=== PATIENT | female | born 1960 | race African-American/Black ===

== ENCOUNTER 2019-11-22 06:53 | Outpatient (CLI) | payer OTHER, SELFPAY ==
--- NOTE | ~2019-11-22 | XR_ITS ---
EXAMINATION: XR shoulder RT min 2V INDICATION: Right shoulder pain TECHNIQUE: Four views of the right shoulder are submitted. COMPARISON: None FINDINGS: Normal alignment. No fracture. There is mild osteoarthritis of the acromioclavicular joint. The glenohumeral joint is unremarkable. Soft tissues are unremarkable. IMPRESSION: Mild osteoarthritis. Reviewed, dictated and finalized at location A. IMPRESSION: Mild osteoarthritis.
--- NOTE | ~2019-11-22 | XR_ITS ---
EXAMINATION:XR_[id number] DATE: 11/22/2019 07:20 INDICATION: Cervical radiculopathy TECHNIQUE: AP, lateral, lateral swimmers and odontoid views of the cervical spine are provided. COMPARISON: None FINDINGS: There are 2 mm of anterolisthesis of C4 on C5. The odontoid is intact. No fracture is ident ified. Vertebral body heights and disk spaces are normal. Prevertebral soft tissues are normal. Small degenerative osteophytes project from the anterior endplates of multiple vertebral bodies. There is advanced facet osteoarthritis from C2-3 through C4-5. Mild to moderate uncovertebral joint osteoarthr itis is also noted at these levels. IMPRESSION: 1. Moderate spondylosis of the upper and mid cervical spine. No acute findings. Reviewed, dictated and finalized at location A.
== END 2019-11-22 06:54 | disposition home or self-care (01) ==
DX: M25.511 Pain in right shoulder (principal); G89.29 Other chronic pain; M19.011 Primary osteoarthritis, right shoulder; M47.22 Other spondylosis with radiculopathy, cervical region
CPT/HCPCS: 72040; 73030

== ENCOUNTER → 2021-07-15 13:13 | Outpatient (CLI) | payer OTHER, SELFPAY ==
--- NOTE | ~2021-07-15 | US_ITS ---
EXAMINATION: US soft tissue head and neck DATE: 07/15/2021 13:48 INDICATION: Right neck lump. TECHNIQUE: Multiple grayscale and Doppler ultrasound images of the neck were obtained. COMPARISON: None FINDINGS: There is no abnormal mass or lymphadenopathy in the right neck in the patient's area of con cern. IMPRESSION: 1. No abnormal mass or lymphadenopathy in the right neck in the patient's area of concern. Reviewed, dictated and finalized at location A. RVISING BAILIFF
== END ==
DX: R22.1 Localized swelling, mass and lump, neck (principal)
CPT/HCPCS: 76536

== ENCOUNTER 2023-09-24 08:54 | Emergency (ER) | payer MEDICARE, SELFPAY ==
--- NOTE | 2023-09-24 09:00 | ED.GENADULT ---
[facility] - General Adult General Chief complaint: Extremity Problem,Nontraumatic Stated complaint: Toe Swelling Time Seen by Provider: 09/24/23 08:57 Source: patient Mode of arrival: ambulatory Limitations: no limitations History of Present Illness HPI narrative: Patient is a 63-year-old female presents with sore to right pinky toe. Patient states has been there for several days and has been treating with [id number] corn treatment. Reports now it is tender to touch. Patient sells plantar wart on the bottom of foot. Patient does not have Podiatry. Denies any drainage from sore. Related Data Home Medications Medication Instructions Recorded Confirmed atenolol 100 mg tablet mg 09/24/23 lovastatin 40 mg tablet mg 09/24/23 meloxicam 15 mg tablet mg 09/24/23 omeprazole 40 mg capsule,delayed mg 09/24/23 release terbinafine HCl 250 mg tablet mg 09/24/23 zolpidem 10 mg tablet mg 09/24/23 Allergies Allergy/AdvReac Type Severity Reaction Status Date / Time No Known Allergies Allergy Verified 09/24/23 09:06 Review of Systems Review of Systems: All systems reviewed & are unremarkable except as noted in HPI and below Constitutional: Constitutional: Denies body ache(s), Denies chills, Denies fatigue, Denies fever(s), Denies headache(s), Denies malaise and Denies weakness Eyes: Eyes: Denies blurry vision, Denies irritation and Denies loss of vision ENT: Denies otalgia, Denies headache(s), Denies nasal discharge, Denies sinus pain and Denies sore throat Cardiovascular: Cardiovascular: Denies chest pain, Denies irregular heart rhythm and Denies dyspnea Respiratory: Respiratory: Denies dyspnea Gastrointestinal: Gastrointestinal: Denies abdominal pain, Denies melena, Denies hematochezia, Denies diarrhea, Denies nausea and Denies vomiting Musculoskeletal: Musculoskeletal: Denies back pain, Denies myalgias and Denies arthralgias Integumentary/Breasts: Skin/Breast: Denies pruritus, Denies rash and Reports sores Neurologic: Denies headache(s), Denies loss of vision and Denies weakness Psychiatric: Psychiatric: Reports no additional psychiatric complaints Endocrine: Endocrine: Denies fatigue PMFSH Comments At time of signature, agree with nursing past medical, surgical, social and family history. There is no relevant family history pertinent to the presenting complaint. Exam Const: General: cooperative, healthy appearing, comfortable, no acute distress and well nourished Nutritional Appearance: well nourished Orientation/consciousness: patient oriented x3 Limitations: no limitations HENMT: Head: normal to inspection, normocephalic and atraumatic Ears: hearing grossly normal bilaterally and external ears normal Face/Nose/Sinus: Normal external nose present, normal facial exam and face symmetric Face and sinus: normal facial exam and face symmetric Mouth: Yes lip normal Eyes: General: appearance normal, both eyes and all related structures Alignment and Position: alignment normal and position normal Periorbital: periorbital findings normal Eyelids: eyelids normal Pupils: Equal, round and reactive pupils present EOM: EOMs intact bilaterally Neck: Neck: normal visual inspection, full ROM and supple Chest: Chest palpation & inspection: normal inspection of the chest Resp: Effort & Inspection: normal respiratory effort and able to speak in complete sentences Auscultation: clear to auscultation bilaterally Cardio: Rate: regular rate Rhythm: regular rhythm Heart sounds: S1 normal heart sound present and S2 normal heart sound present GI: Inspection: normal to inspection Skin: General skin exam: normal color and no rashes or lesions noted Neuro: General: patient oriented x3 and moves all extremities Cranial nerves: Yes Equal, round and reactive pupils present Speech: normal speech Gait exam (Neuro): Normal gait present Extrem: General: normal to inspection, full ROM and no edema Right lower extremity:
[2023-09-24 09:11] VITALS: BP 176/89; PULSE 73; RESP 16; TEMP 36.6; O2SAT 100
== END 2023-09-24 09:25 | disposition home or self-care (01) ==
PROVIDERS: Emergency Provider Nurse Practitioner Family
DX: B07.0 Plantar wart (principal); I10 Essential (primary) hypertension; K21.9 Gastro-esophageal reflux disease without esophagitis
CPT/HCPCS: 99211; G0463

== ENCOUNTER 2024-11-25 11:53 | Emergency (ER) | payer MEDICARE, SELFPAY ==
--- NOTE | 2024-11-25 11:55 | ED_ITS ---
HPI - Extremity Injury (Lower) General Chief Complaint: Extremity Injury, Lower Stated Complaint: L FOOT PAIN Time Seen by Provider: 11/25/24 12:10 Source: patient Mode of arrival: ambulatory Limitations: no limitations History of Present Illness HPI Narrative: Delilah is a 64-year-old female patient presenting to the clinic today with complaints of left great toe pain times 3-4 days. She denies any known injury. States that it is very painful to walk on the left foot due to the toe pain and swelling. Has been taking ibuprofen with minimal relief Related Data Home Medications Medication Instructions Recorded Confirmed Last Taken Type atenolol 100 mg tablet 100 mg PO HS 09/24/23 09/24/23 Unknown History lovastatin 40 mg tablet 40 mg PO HS 09/24/23 09/24/23 Unknown History meloxicam 15 mg tablet 15 mg PO DAILY 09/24/23 09/24/23 Unknown History omeprazole 40 mg capsule,delayed 40 mg PO BID 09/24/23 09/24/23 Unknown History release terbinafine HCl 250 mg tablet 250 mg PO DAILY 09/24/23 09/24/23 Unknown History triamterene 37.5 1 cap PO DAILY 09/24/23 09/24/23 Unknown History mg-hydrochlorothiazide 25 mg capsule zolpidem 10 mg tablet 10 mg PO HS PRN Insomnia 09/24/23 09/24/23 Unknown History Allergies Allergy/AdvReac Type Severity Reaction Status Date / Time No Known Allergies Allergy Verified 11/25/24 12:09 Review of Systems Review of Systems: Pertinent positives per HPI. Patient denies any fever, chills, rash, headache, visual changes, dizziness, cough, runny nose, sore throat, shortness of breath, chest pain, palpitations, nausea, vomiting, diarrhea, constipation, abdominal pain, or any urinary issues. PMFSH Comments At the time of my signature, I reviewed and agree with the nursing past medical, surgical, social, and family history. There is no relevant family history pertinent to the patient complaint. Exam Narrative: General: Well-developed, well nourished, in no apparent distress Head: Normocephalic, atraumatic. Cardio: Regular rate and rhythm, s1 and s2 normal, no murmur appreciated. Resp: Clear to auscultation bilaterally, no rhonchi, rales, wheezing or rubs. Musculoskeletal: No deformity, base of right great toe swollen and painful to palpation with mild erythema, limited range of motion to the left great toe due to pain and swelling, muscle strength strong and equal, peripheral pulse strong, no edema, no cyanosis, normal gait and station Course Course Emergency Course: Portions of this record may have been created with voice recognition software. Level of Care: Express Care Visit Vital Signs Vital signs: Vital Signs Temperature 36.4 C 11/25/24 12:04 Pulse Rate 91 11/25/24 12:04 Respiratory Rate 16 11/25/24 12:04 Blood Pressure 151/84 H 11/25/24 12:04 Pulse Oximetry 99 11/25/24 12:04 Temperature 36.4 C 11/25/24 12:04 Pulse Rate 91 11/25/24 12:04 Respiratory Rate 16 11/25/24 12:04 Blood Pressure 151/84 H 11/25/24 12:04 Pulse Oximetry 99 11/25/24 12:04 Vital signs reviewed MDM - Extremity Injury (Lower) MDM Narrative Medical decision making narrative: At the time of visit patient is resting comfortably on the exam table. Patient appears to be nontoxic. Plan: I suspect patient has gout arthritis in the left great toe. Prescription for colchicine and Medrol Dosepak was sent to the pharmacy. Supportive measures were discussed with the patient and they voiced understanding discharge instructions and agrees to treatment plan. Return precautions reviewed Differential Diagnosis Differential diagnosis: Likely fracture of toe and other (Gout, arthritis, cellulitis, toe sprain, tendinitis) Discharge Plan Discharge Clinical Impression: Gouty arthritis of great toe Patient Disposition: Home Condition: Stable Instructions: Antibiotic Form, Low Purine Diet (ED), Gout (ED) Additional Instructions: Take colchicine as directed-this medication will cause diarrhea Take Medrol Dosepak as prescribed May take Tylenol additionally as needed for pain May apply ice pack to the affected area to help alleviate pain Follow-up with your primary care doctor in 2-3 days if symptoms persist Patient Language: [place]ian Prescriptions: New methylprednisolone [Medrol (Bry)] 4 mg tablets,dose pack See Rx Instructions PO .COMPLEX Qty: 21 0RF Rx Instructions: orally per package directions colchicine 0.6 mg tablet 0.6 mg PO DAILY 1 Days Qty: 3 0RF Rx Instructions: Take 2 tabs (1.2mg) x1 dose then 1 tab (0.6mg) one hour later No Action atenolol 100 mg tablet 100 mg PO HS meloxicam 15 mg tablet 15 mg PO DAILY lovastatin 40 mg tablet 40 mg PO HS omeprazole 40 mg capsule,delayed release(DR/EC) 40 mg PO BID terbinafine HCl 250 mg tablet 250 mg PO DAILY triamterene-hydrochlorothiazid 37.5-25 mg capsule 1 cap PO DAILY zolpidem 10 mg tablet 10 mg PO HS PRN (Reason: Insomnia) Follow-up/Referrals: UNKNOWN,DOCTOR [Non-Staff] - Time of Disposition: 12:11 Quality NIHSS Nursing Documentation ED NIHSS nursing documentation: reviewed/agree
[2024-11-25 12:04] VITALS: BP 151/84; PULSE 91; RESP 16; TEMP 36.4; O2SAT 99
== END 2024-11-25 12:17 | disposition home or self-care (01) ==
PROVIDERS: Emergency Provider Nurse Practitioner Family
DX: M10.9 Gout, unspecified (principal); I10 Essential (primary) hypertension; K21.9 Gastro-esophageal reflux disease without esophagitis
CPT/HCPCS: 99213; G0463

== ENCOUNTER 2025-05-26 17:23 | Emergency (ER) | payer MEDICARE, SELFPAY ==
--- NOTE | 2025-05-26 17:41 | ED.CPR ---
HPI - CPR General Chief Complaint: Cardiac Arrest/CPR Stated Complaint: cardiac arrest Time Seen by Provider: 05/26/25 17:40 Source: EMS Mode of arrival: EMS Limitations: clinical condition History of Present Illness HPI narrative: 64-year-old female presenting to the ED via EMS for cardiac arrest. Per EMS the patient apparently had a witnessed seizure in the [place] parking lot. Shortly after this she did go into cardiac arrest. She was initially in PA by EMS but quickly into asystole. Received 4 rounds of epinephrine and was never in a shockable rhythm. Related Data Home Medications ?Medication ?Instructions ?Recorded ?Confirmed ?Last Taken ?Type atenolol 100 mg tablet 100 mg PO HS 09/24/23 09/24/23 Unknown History lovastatin 40 mg tablet 40 mg PO HS 09/24/23 09/24/23 Unknown History meloxicam 15 mg tablet 15 mg PO DAILY 09/24/23 09/24/23 Unknown History omeprazole 40 mg capsule,delayed 40 mg PO BID 09/24/23 09/24/23 Unknown History release terbinafine HCl 250 mg tablet 250 mg PO DAILY 09/24/23 09/24/23 Unknown History triamterene 37.5 1 cap PO DAILY 09/24/23 09/24/23 Unknown History mg-hydrochlorothiazide 25 mg capsule zolpidem 10 mg tablet 10 mg PO HS PRN Insomnia 09/24/23 09/24/23 Unknown History Allergies Allergy/AdvReac Type Severity Reaction Status Date / Time No Known Allergies Allergy Verified 11/25/24 12:09 Review of Systems Review of Systems: ROS unobtainable: Yes unobtainable due to medical condition Exam Narrative: APPEARANCE: Lying in bed unresponsive to verbal and painful stimuli HEENT: Normocephalic, atraumatic, orotracheal tube in place Eyes: Pulses fixed and dilated RESPIRATORY: No spontaneous breath sounds auscultated. Equal course breath sounds with bag ventilation. Blood coming from the ET tube. CARDIOVASCULAR: No spontaneous heart rate auscultated ABDOMINAL: Soft, nondistended MUSCULOSKELETAl: Distal cyanosis with no spontaneous motion of extremities NEURO: Unresponsive to verbal and painful stimuli SKIN:: Cool and dry MDM - Cardiac Arrest/CPR MDM Narrative Medical decision making narrative: 64-year-old female presenting in cardiac arrest. Patient apparently had seizure activity and then quickly with to cardiac arrest which was witnessed. History of hypertension but rather limited medical history beyond this at this time. Patient received 4 rounds of epi with AMS presenting here in a PEA with subsequently asystole. On presentation here, patient was in asystole without pulses. BGM 127. She did have significant blood coming from the ET tube and from her mouth. ET tube placement was confirmed by auscultation. Abdomen was nondistended. Suspect that patient had seizure activity in the setting of her hypertension and may have had diffuse pulmonary hemorrhages causing her arrest. Patient remained in asystole and intermittently in PEA but remained without pulses despite bicarb and epinephrine. Family was invited to bedside to observe efforts. But at this time, heroic efforts were terminated. Time of 1740. Refer to nurse's documentation for complete details of code. CRITICAL CARE Indication: cardiac arrest Time type: continuous I provided a total of 35 minutes of critical care excluding separately billable procedures. This includes time w/ EMS, initial bedside evaluation, reviewing old records, review of testing done while under my care, discussion w/ the family, nurses, contamination consultant and guiding the patient?s care while in the emergency department. Approximate time distribution: 5 minutes ? Initial evaluation, d/w involved parties, attempting to gather old records. 10 minutes ? Documenting medical record 20 minutes ? Serial repeat bedside evaluation Lab Data Labs: Lab Results 05/26/25 Range/Units 17:31 POC Capillary Glucose 127 H (65-105) mg/dl Discharge Plan Discharge Clinical Impression: Cardiac arrest, Seizure, Lung hemorrhage Patient Disposition: Condition: Patient Language: [place] Prescriptions: No Action atenolol 100 mg tablet 100 mg PO HS meloxicam 15 mg tablet 15 mg PO DAILY lovastatin 40 mg tablet 40 mg PO HS omeprazole 40 mg capsule,delayed release(DR/EC) 40 mg PO BID terbinafine HCl 250 mg tablet 250 mg PO DAILY triamterene-hydrochlorothiazid 37.5-25 mg capsule 1 cap PO DAILY zolpidem 10 mg tablet 10 mg PO HS PRN (Reason: Insomnia) methylprednisolone [Medrol (Bry)] 4 mg tablets,dose pack See Rx Instructions PO .COMPLEX Qty: 21 0RF Rx Instructions: orally per package directions colchicine 0.6 mg tablet 0.6 mg PO DAILY 1 Days Qty: 3 0RF Rx Instructions: Take 2 tabs (1.2mg) x1 dose then 1 tab (0.6mg) one hour later Follow-up/Referrals: Tejas,Allen [Other]
--- NOTE | 2025-05-26 17:46 | PC.NURSE ---
RN called Care Coordination to call for pastoral care.
--- NOTE | 2025-05-26 17:50 | PC.NURSE ---
Family given patient's cell phone, brown knee high boots, beaded bracelet and purple watch.
--- NOTE | 2025-05-26 17:56 | PC.NURSE ---
18 R hand placed by EMS 17:22 ED staff gave one dose Epi Zaid compression continued 17:24 Pulse check: PEA, No pulse Sodium Bicarb given via peripheral IV 17:25 Daughter at bedside. Family stated they wanted to see patient. Family offered family room. 17:26 Pulse check: asystole Zaid removed Manual compressions started 17:27 Second dose of Epi given 17:28 Pulse Check: PEA, no pulse 17:29 Sodium Bicarb given through newly placed 20 L wrist PIV 17:31 Third dose of Epi given Blood glucose checked: 127 Pulse checked, no pulse, compressions continued 17:33 Pulse checked, no pulse, compressions continued 17:34 Fourth dose of Epi given 17:35 Pulse check, no pulse, compressions continued 17:37 Pulse check, no pulse, compressions continued Fifth dose of Epi given 17:39 Pulse check, no pulse, compressions continued 17:40 MD Tariq called TIME OF Family in room with patient
--- NOTE | 2025-05-26 18:00 | PC.NURSE ---
Care Coordination looking for family to speak with them. Family not in patient room or family room.
--- NOTE | 2025-05-26 19:03 | PC.NURSE ---
Tubes and IV's removed from patient. Clothing removed. Patient placed in shroud bag. Patient Identification card placed on toe, ID card placed on shroud bag and ID card placed on patient belongings. Patient clothing, wallet, wedding ring, and brown earrings placed in belonging bag with patient sticker. Bag will be transported to [facility] [place] with patient.
--- NOTE | 2025-05-26 20:11 | PC.NURSE ---
Pt's family back to ED to [facility] pickup pt's belongings, which includes a wedding ring, wallet, earrings, and clothing. Security to go down to [facility] [place] to bring up for [place]'s family.
== END 2025-05-26 19:32 | disposition expired ==
PROVIDERS: Emergency Provider Student in an Organized Health Care Education/Training Program
DX: I46.9 Cardiac arrest, cause unspecified (principal); R56.9 Unspecified convulsions; R04.89 Hemorrhage from other sites in respiratory passages
CPT/HCPCS: 82948; 92950; 96374; 99285; J0168